=== PATIENT | male | born 1980 ===

== ENCOUNTER → 2019-05-19 | Outpatient (CLI) | payer OTHER ==
[~2019-05-19] MED LIST: CRUTCH USE; HYDACE5 PO; RXHYDACE PO
== END | disposition home or self-care (01) ==
LOC: PLD 13:41 → LAB SHORT 13:41
DX: D17.22 Benign lipomatous neoplasm of skin and subcutaneous tissue of left arm (principal)
CPT/HCPCS: 88304

== ENCOUNTER → 2020-05-17 | Outpatient (CLI) | payer OTHER | END | disposition home or self-care (01) | LOC: PLD 07:27 → LAB SHORT 07:27 | DX: D17.79 Benign lipomatous neoplasm of other sites (principal) | CPT/HCPCS: 88304 ==

== ENCOUNTER → 2020-06-19 | Outpatient (CLI) | payer OTHER | END | disposition home or self-care (01) | LOC: LAB 13:30 → LAB SHORT 13:30 → LAB FUT 05-02 08:55 | DX: Z30.2 Encounter for sterilization (principal) ==